=== PATIENT | male | born 1985 | race American Indian/Alaskan Native ===

== ENCOUNTER 2019-08-17 22:14 | Emergency (ER) | payer SELFPAY ==
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
[2019-08-17 22:21] VITALS: BP 125/70
--- NOTE | 2019-08-17 22:51 | XRay Report ---
Left hand 3 views INDICATION: Left hand pain and swelling IMPRESSION: There is a obliquely oriented impacted fracture involving the proximal metaphysis of the fifth metacarpal. Moderate overlying soft tissue swelling. Signer Name: Lamin Pearson MD Signed: 08/17/2019 10:47 PM Workstation Name: [id number]
[2019-08-17] MEDS ORDERED: IBUPROFEN 600 MG TAB PO ONE (23:01)
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
== END 2019-08-17 23:34 | disposition home or self-care (01) ==
LOC: ED 22:14
DX: S62.339A Displaced fracture of neck of unspecified metacarpal bone, initial encounter for closed fracture (principal); F12.10 Cannabis abuse, uncomplicated; X58.XXXA Exposure to other specified factors, initial encounter; Y93.89 Activity, other specified; Y92.89 Other specified places as the place of occurrence of the external cause; Y99.8 Other external cause status

== ENCOUNTER 2022-06-13 12:58 | Emergency (ER) | payer SELFPAY ==
[2022-06-13 14:46] VITALS: BP 165/92
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
== END 2022-06-13 16:05 | disposition home or self-care (01) ==
LOC: ED 12:58
DX: S46.812A Strain of other muscles, fascia and tendons at shoulder and upper arm level, left arm, initial encounter (principal); S16.1XXA Strain of muscle, fascia and tendon at neck level, initial encounter; M54.16 Radiculopathy, lumbar region; R03.0 Elevated blood-pressure reading, without diagnosis of hypertension; F12.90 Cannabis use, unspecified, uncomplicated; Z79.899 Other long term (current) drug therapy; V87.7XXA Person injured in collision between other specified motor vehicles (traffic), initial encounter; Y93.89 Activity, other specified; Y92.488 Other paved roadways as the place of occurrence of the external cause; Y99.8 Other external cause status
CPT/HCPCS: 99282